=== PATIENT | male | born 1985 | race Caucasian/White ===

== ENCOUNTER 2016-11-04 19:01 | Emergency (ER) | payer MEDICAID ==
[2016-11-04 20:12] VITALS: BP 137/79
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
--- NOTE | 2016-11-06 09:08 | CR ---
Ankle Min 3V Lt HISTORY: Injury FINDINGS: There is normal alignment. There is no evidence of fracture. The ankle mortise appears int act. The soft tissues are unremarkable. IMPRESSION: Negative exam.
== END 2016-11-04 22:58 | disposition home or self-care (01) ==
LOC: JP.ED 19:01
DX: S93.402A Sprain of unspecified ligament of left ankle, initial encounter (principal); X50.1XXA Overexertion from prolonged static or awkward postures, initial encounter
CPT/HCPCS: 73610-26-LT; 73610-LT; 99282; 99284